=== PATIENT | female | born 1960 | race Caucasian/White ===

== ENCOUNTER 2017-03-06 06:04 | Day surgery (SDC) | payer OTHER ==
[~2017-03-06] VITALS: Ht 152.4 cm; Wt 68.0 kg
[~2017-03-06 06:04] MED LIST: ENEMA; LEVO50TA74 PO; MOME13HF2 IH; MONT10TA24 PO
[2017-03-06 06:33] VITALS: Ht 152.4 cm; Wt 68.0 kg
[2017-03-06] MEDS ORDERED: MESA800T2 PO (06:42)
[2017-03-06] MEDS ORDERED: ADV10050 INHALATION (06:42)
[2017-03-06] MEDS ORDERED: OMEP40CA6 PO (06:42)
[2017-03-06] MEDS ORDERED: MONT4TAB7 PO (06:42)
[2017-03-06 07:02] VITALS: BP 105/53; PULSE 61; RESP 14
[2017-03-06] MEDS ORDERED: MIDAZOLAM 1 MG/ML 2 ML INJ ONE (07:35)
[2017-03-06] MEDS ORDERED: FENTAnyl 50 MCG/ML VIAL ONE (07:35)
[2017-03-06 08:04] VITALS: BP 100/56; PULSE 62; RESP 18
--- NOTE | 2017-03-06 10:35 | GILP ---
DATE OF PROCEDURE: NAME OF PROCEDURES: Esophagogastroduodenoscopy and biopsy. SURGEON: Jasmin Valdes MD PREOPERATIVE DIAGNOSIS: Abdominal pain. POSTOPERATIVE DIAGNOSES: 1. Gastritis with erosions. 2. Gastric mucosal biopsies were taken for Helicobacter pylori test. INDICATION FOR THE PROCEDURE: Ms. Dot Love is a 56-year-old female patient who had upper abdomin al pain and bloating, not responding to therapy. The patient was scheduled for endoscopic examinati on for further evaluation. The procedure and possible complications were well explained to the patient, she understood and cons ented to the procedure. DESCRIPTION OF PROCEDURE: Under the influence of fentanyl and Versed, the gastroscope was carefully introduced into the esophagus and under direct vision, it was advanced to the stomach and through t he pylorus into the duodenal bulb and descending duodenum. FINDINGS: ESOPHAGUS: The mucosa was normal. STOMACH: The patient had gastritis with erosions. Gastric mucosal biopsies were taken for H. pylor i test. DUODENUM: Normal. She tolerated the procedure very well and there was no complication from the procedure. At the end of the procedures, she was awake with stable vital signs and she was discharged home to the care of her family. IMPRESSION: 1. Gastritis with erosions. 2. Gastric mucosal biopsies were taken for Helicobacter pylori test. PLAN: 1. Continue omeprazole. 2. Add Zantac 300 mg p.o. at bedtime. 3. Await H. pylori test report. Dictated By: JASMIN MÁRQUEZ/SHIMA Conf#: [id number] DID#: [id number]
== END 2017-03-06 12:58 | disposition home or self-care (01) ==
LOC: GIL 06:04
PROVIDERS: ATTEND Internal Medicine Gastroenterology
DX: K29.70 Gastritis, unspecified, without bleeding (principal)
CPT/HCPCS: 43239; 87081; J2250; J3010; Z7610

== ENCOUNTER 2019-06-05 08:53 | Day surgery (SDC) | payer OTHER ==
[~2019-06-05] VITALS: Ht 152.4 cm; Wt 67.1 kg
[~2019-06-05 08:53] MED LIST changes: +ADV10050 INHALATION; +CETI10TA34 PO; +DICY10CA40; -ENEMA; +LEVO50TA7 PO; -LEVO50TA74 PO; +MESA800T2 PO; -MOME13HF2 IH; -MONT10TA24 PO; +MONT4TAB8 PO; +OMEP40CA6 PO; +RANI300T PO
[2019-06-05 10:26] VITALS: Ht 152.4 cm; Wt 67.1 kg
[2019-06-05 11:14] VITALS: BP 109/73; PULSE 66; RESP 17
--- NOTE | 2019-06-05 11:15 | PREAC ---
Date/Time of Note Date/Time of Note DATE: 06/05/19 TIME: 11:10 Anesthesia Eval and Record Evaluation Time Pre-Procedure Interview DATE: 06/05/19 TIME: 11:10 Age 58 Sex female NPO: 8 hrs Preoperative diagnosis Rectal Bleeding, Abd pain Planned procedure EGD & Colonoscopy Past Medical History Past Medical History: Includes Endo: Hypothyroid Pulm: Asthma GI: GERD, Other (rectal bleeding, colitis) : Other (s/p hysteerectomy) Surgery & Anesthesia Issues No known issue Meds Anticoagulation: No Beta Isis within 24 hr: No Reason Beta Isis not given: Pt. not on B-Isis Reported Medications Cetirizine Hcl* (Cetirizine Hcl*) 10 Mg Tab.chew, 10 MG PO DAILY, #30 TAB 06/05/19 Ranitidine Hcl* (Ranitidine Hcl*) 300 Mg Tablet, 300 MG PO HS, #30 TAB 06/05/19 Dicyclomine HCl (Dicyclomine HCl) 10 Mg Capsule 06/05/19 Omeprazole* (Omeprazole*) 40 Mg Capsule.dr, 40 MG PO DAILY, #30 CAP 03/06/17 Salmeterol Xinaf-Fluticasone* (Advair*) 100/50 Diskus Inhaler, 1 INH INHALATION BID, #1 INHALER 03/06/17 Levothyroxine Sodium* (Levothyroxine Sodium*) 50 Mcg Tablet, 50 MCG PO AC BREAKFAST, TAB 09/13/14 Discontinued Reported Medications Montelukast Sodium* (Singulair*) 4 Mg Tab.chew, 4 MG PO DAILY, #30 TAB 03/06/17 Mesalamine* (Asacol HD) 800 Mg Tablet.dr, 1800 MG PO TID, TAB 03/06/17 Meds reviewed: Yes Allergies Coded Allergies: No Known Drug Allergy (Verified Allergy, Unknown, 03/06/17) Allergies Reviewed: Yes Labs/Studies Labs Reviewed: Reviewed by anesthesiologist test: N/A Studies: ECG (n/a), CXR (n/a) Pre-procedure Exam Airway: Adequate mouth opening, Adequate thyromental dist Mallampati: Mallampati II Teeth: Normal Lung: Normal Heart: Normal ASA Physical Status ASA physical status: 2 Emergency: None Planned Anesthetic General/MAC: MAC Planned Pain Management Parenteral pain med Pre-operative Attestations Prior to commencing anesthesia and surgery, the patient was re-evaluated, there was verification of: *The patient's identity *The results of appropriate recent lab work and preoperative vital signs *The above evaluation not changing prior to induction *Anesthetic plan, risk benefits, alternative and complications discussed with patient/family; questions answered; patient/family understands, accepts and wishes to proceed. DORYS DAN MD Jun 05, 2019 11:15
[2019-06-05] MEDS ORDERED: PROPOFOL 60 ML ONE (11:52)
--- NOTE | 2019-06-05 11:55 | PAC ---
Date/Time of Note Date/Time of Note DATE: 06/05/19 TIME: 11:55 Post-Anesthesia Notes Post-Anesthesia Note Last documented vital signs T: 98.0 Activity: WNL Respiratory function: WNL Cardiovascular function: WNL Mental status: Baseline Pain reasonably controlled: Yes Hydration appropriate: Yes Nausea/Vomiting absent: Yes DORYS DAN MD Jun 05, 2019 11:55
[2019-06-05 12:25] VITALS: BP 112/74; RESP 18
--- NOTE | 2019-06-05 21:11 | CONS ---
DATE OF ADMISSION: 06/05/2019 DATE OF CONSULTATION: PATIENT NAME: HAKEEM VEE TYPE OF CONSULTATION: Preoperative gastroenterology. Dear Dr. Vargas: I thank you very much for this kind referral. HISTORY OF PRESENT ILLNESS: Ms. Hakeem Vee is a 58-year-old female patient who has been referred to me for further evaluation of abdominal pain and rectal bleeding. The patient states she has got epi gastric pain as well as pain in the lower part of the abdomen. Patient has been taking omeprazole wi thout relief. The patient is known to have had gastritis. She is not on any nonsteroidal anti-infla mmatory agents. No history of gallstones or liver disease. Patient complains of rectal bleeding. S he is known to have had ulcerative proctitis and mild colitis in the proximal part of the colon. She has been taking mesalamine enema. Not a hypertensive or diabetic. No heart disease. Has bronchial asthma. No kidney disease. SOCIAL HISTORY: Nonsmoker. No alcohol abuse. FAMILY HISTORY: The patient's mother had colon cancer. SOCIAL HISTORY: Nonsmoker. No alcohol abuse. FAMILY HISTORY: The patient's mother had colon cancer. ALLERGIES: NO DRUG ALLERGIES. MEDICATIONS: 1. Omeprazole. 2. Mesalamine enema. 3. Levothyroxine. 4. Inhalers for bronchial asthma. 5. Singulair. PHYSICAL EXAMINATION: GENERAL: She is 5 feet tall and weighs 134 pounds. HEART: Normal heart sounds. LUNGS: Clear. ABDOMEN: Soft, no masses. Normal bowel sounds. NEUROLOGIC: Normal neurological exam. IMPRESSION: 1. Upper abdominal pain, not responding to therapy with omeprazole. 2. Lower abdominal pain. 3. Rectal bleeding. 4. History of ulcerative proctitis and mild colitis in the proximal part of the colon. 5. The patient is on mesalamine enema. 6. Bronchial asthma. 7. Hypothyroidism. PLAN: 1. Continue omeprazole and mesalamine enema. 2. Bentyl 10 mg p.o. t.i.d. p.r.n. for lower abdominal pain. 3. Colonoscopy and upper endoscopy for further evaluation. The procedures and possible complications were well explained to the patient. She understands and co nsents to the procedures. I thank you once again. With warmest personal regards, Dictated By: JASMIN MÁRQUEZ/SHIMA Conf#: [id number] [facility]#: [id number]
== END 2019-06-05 15:07 | disposition home or self-care (01) ==
LOC: GIL 08:53
PROVIDERS: ATTEND Internal Medicine Gastroenterology
DX: K64.8 Other hemorrhoids (principal); K29.30 Chronic superficial gastritis without bleeding; K51.90 Ulcerative colitis, unspecified, without complications; J45.909 Unspecified asthma, uncomplicated; E03.9 Hypothyroidism, unspecified
CPT/HCPCS: 43239; 45380; 88305; 88312; Z7610